=== PATIENT | female | born 1935 | race Caucasian/White ===

== ENCOUNTER 2018-05-04 10:30 | Emergency (ER) | payer MEDICARE, BC ==
[~2018-05-04] VITALS: Ht 152.4 cm; Wt 62.0 kg
[2018-05-04] MEDS ORDERED: ESCI10TA10 PO (11:00)
[2018-05-04] MEDS ORDERED: LOSA50TA7 PO (11:00)
[2018-05-04] MEDS ORDERED: AMLO10TA6 PO (11:00)
[2018-05-04 11:50] LABS: BASOPHILS # (AUTO) 0.08 x10^3/uL (0-0.1); BASOPHILS % (AUTO) 1 % (0-1); EOSINOPHILS # (AUTO) 0.13 x10^3/uL (0-0.4); EOSINOPHILS % (AUTO) 1 % (1-7); LYMPHOCYTES # (AUTO) 0.94 x10^3/uL (1-3.4); LYMPHOCYTES % (AUTO) 6 % (22-44); MD NO; MEAN CORPUSCULAR HGB CONC 33.1 g/dL (32.4-35.8); MEAN CORPUSCULAR VOLUME 81.8 fL (80-100); MEAN PLATELET VOLUME 10.2 fL (7.4-10.4); MONOCYTES # (AUTO) 0.57 x10^3/uL (0.2-0.8); MONOCYTES % (AUTO) 4 % (2-9); NEUTROPHILS # (AUTO) 12.92 x10^3/uL (1.8-6.8); NEUTROPHILS % (AUTO) 88 % (42-75); PLATELET COUNT 257 x10^3/uL (130-400); RED BLOOD COUNT 4.46 x10^6/uL (3.82-5.3); RED CELL DISTRIBUTION WIDTH 16.2 % (9.6-15.2)
[2018-05-04 12:02] LABS: ALBUMIN 4.1 g/dL (3.4-5.0); ANION GAP 6 mmol/L (5-15); CALCIUM 8.8 mg/dL (8.5-10.1); CHLORIDE 100 mmol/L (98-107); CREATININE 0.61 mg/dL (0.55-1.02)
[2018-05-04 12:06] LABS: TROPONIN I < 0.015 ng/mL (0.000-0.045)
[2018-05-04 12:57] LABS: MICROSCOPIC NOT IND
[2018-05-04 12:58] LABS: CULTURE INDICATED? NO
[2018-05-04 12:59] VITALS: BP 143/77
== END 2018-05-04 13:26 | disposition home or self-care (01) ==
LOC: ED 13:20
DX: R42 Dizziness and giddiness (principal); I10 Essential (primary) hypertension; F32.9 Major depressive disorder, single episode, unspecified; Z90.49 Acquired absence of other specified parts of digestive tract
CPT/HCPCS: 36415; 71045; 80048; 81003; 82040; 84484; 85025; 93005; 99284

== ENCOUNTER 2020-09-16 18:25 | Emergency (ER) | payer MEDICARE, BC ==
[~2020-09-16] VITALS: Ht 152.4 cm; Wt 66.9 kg
[~2020-09-16 18:25] MED LIST: AMLO-211 PO; ESCI10TA10 PO; LOSA50TA14 PO
--- NOTE | 2020-09-16 18:48 | NUR ---
Report to cong MANUEL
--- NOTE | 2020-09-16 18:49 | NUR ---
REPORT FROM [facility] AND [facility] TRANSFER OF CARE AT THIS TIME
--- NOTE | 2020-09-16 19:45 | NUR ---
PT RESTING ON [facility] FAMILY AT BEDSIDE, NO NEEDS AT THIS TIME.
[2020-09-16 20:25] VITALS: BP 128/72
--- NOTE | 2020-09-16 20:25 | NUR ---
Patient/Caregiver given discharge instructions and they have confirmed that they understand the instructions. Patient ambulatory with steady gait.
== END 2020-09-16 20:27 | disposition home or self-care (01) ==
LOC: ED 20:05
DX: S93.491A Sprain of other ligament of right ankle, initial encounter (principal); I10 Essential (primary) hypertension; Z90.49 Acquired absence of other specified parts of digestive tract; X58.XXXA Exposure to other specified factors, initial encounter; Y93.89 Activity, other specified; Y92.89 Other specified places as the place of occurrence of the external cause; Y99.8 Other external cause status
CPT/HCPCS: 99284